=== PATIENT | female | born 1990 | race Caucasian/White ===

== ENCOUNTER → 2016-12-10 | Outpatient (CLI) | payer MEDICAID ==
[~2016-12-10] MED LIST: CIPR250T2 PO; ERYT500 PO; FIORTAB4 PO; LORT5TAB PO; PROM25SU8 PO; Z.0.NO CURRENT MEDS
== END ==
LOC: HPND 08:33
PROVIDERS: ATTEND Obstetrics & Gynecology
DX: O35.1XX0 Maternal care for (suspected) chromosomal abnormality in fetus, not applicable or unspecified (principal)
CPT/HCPCS: 76811

== ENCOUNTER → 2017-01-08 | Outpatient (CLI) | payer MEDICAID | LOC: HPND 08:07 | PROVIDERS: ATTEND Obstetrics & Gynecology | DX: O35.2XX0 Maternal care for (suspected) hereditary disease in fetus, not applicable or unspecified (principal); O40.2XX0 Polyhydramnios, second trimester, not applicable or unspecified | CPT/HCPCS: 36415; 76816 ==

== ENCOUNTER → 2017-02-06 | Outpatient (CLI) | payer MEDICAID | LOC: HPND 07:37 | PROVIDERS: ATTEND Obstetrics & Gynecology | DX: O35.1XX0 Maternal care for (suspected) chromosomal abnormality in fetus, not applicable or unspecified (principal); Z3A.35 35 weeks gestation of pregnancy | CPT/HCPCS: 76816 ==